=== PATIENT | male | born 1975 | race African-American/Black ===

== ENCOUNTER 2022-08-30 19:33 | Emergency (ER) | payer MEDICAID ==
[~2022-08-30] VITALS: Ht 170.2 cm; Wt 82.0 kg
[2022-08-30 19:45] VITALS: BP 157/102
== END 2022-08-30 20:59 | disposition home or self-care (01) ==
LOC: ER 19:33
DX: R44.0 Auditory hallucinations (principal); F10.10 Alcohol abuse, uncomplicated; F12.10 Cannabis abuse, uncomplicated; Y90.9 Presence of alcohol in blood, level not specified; F31.9 Bipolar disorder, unspecified; F43.10 Post-traumatic stress disorder, unspecified
CPT/HCPCS: 99283

== ENCOUNTER 2022-08-30 23:40 | Emergency (ER) | payer MEDICAID ==
[~2022-08-30] VITALS: Ht 172.7 cm; Wt 86.0 kg
[2022-08-30 23:55] VITALS: BP 113/89
== END 2022-08-31 01:32 | disposition home or self-care (01) ==
LOC: ER 23:40
DX: R45.6 Violent behavior (principal); F12.10 Cannabis abuse, uncomplicated; Z59.00 Homelessness unspecified; Z86.59 Personal history of other mental and behavioral disorders
CPT/HCPCS: 99281